=== PATIENT | female | born 1990 | race American Indian/Alaskan Native ===

== ENCOUNTER 2017-05-10 10:43 | Emergency (ER) | payer OTHER ==
[2017-05-10 14:42] LABS: Basophils % (Auto) 0.4 % (0.0-1.8); Eosinophils # (Auto) 0.5 K/mm3 (0.0-0.4); Eosinophils % (Auto) 5.2 % (0.0-4.3); Hemoglobin 12.3 gm/dl (10.1-14.3); Lymphocytes # (Auto) 3.6 K/mm3 (1.2-5.4); Lymphocytes % (Auto) 37.5 % (13.4-35.0); Mean Corpuscular HGB Conc 33 % (30-34); Mean Corpuscular Hemoglobin 28 pg (28-32); Mean Corpuscular Volume 87 fl (79-97); Monocytes # (Auto) 0.9 K/mm3 (0.0-0.8); Monocytes % (Auto) 8.8 % (0.0-7.3); Platelet Count 237 K/mm3 (140-440); Red Blood Count 4.36 M/mm3 (3.65-5.03); Red Cell Distribution Width 15.5 % (13.2-15.2)
[2017-05-10 14:56] LABS: Alanine Aminotransferase 16 units/L (7-56); Albumin 4.1 g/dL (3.9-5); BUN/Creatinine Ratio 13; Blood Urea Nitrogen 8 mg/dL (7-17); Calcium 8.9 mg/dL (8.4-10.2); Hemolysis Index 18
[2017-05-10 17:10] LABS: Bilirubin,Urine NEG (Negative); Blood,Urine NEG (Negative); Color,Urine Yellow (Yellow); Mucus,Urine FEW /HPF; Nitrite,Urine NEG (Negative); Protein,Urine <15 mg/dL mg/dL (Negative); Urobilinogen,Urine < 2.0 mg/dL (<2.0); WBC,Urine < 1.0 /HPF (0.0-6.0)
--- NOTE | 2017-05-10 19:39 | Emergency Department Report ---
ED Female HPI - General Chief complaint: Abdominal Pain Stated complaint: ABDOMINAL PAIN Time Seen by Provider: 05/10/17 18:41 Source: patient (LMP 04/08/17 but her period has not bee regular since November 2016. Apart from the irregular period she has been having intermittent random right lower abdominal pain. No other symptoms. She is sexually active and trying to get . No previous pregnancies.) Mode of arrival: Ambulatory Limitations: No Limitations - Related Data Previous Rx's Medication Instructions Recorded Last Taken Type Ibuprofen [Motrin] 800 mg PO Q8HR PRN #28 tablet 05/10/17 Unknown Rx Allergies Allergy/AdvReac Type Severity Reaction Status Date / Time No Known Allergies Allergy Unverified 05/10/17 12:53 ED Review of Systems ROS: Stated complaint: ABDOMINAL PAIN Other details as noted in HPI Constitutional: denies: chills, fever Eyes: denies: eye pain, eye discharge, vision change ENT: denies: ear pain, throat pain Respiratory: denies: cough, shortness of breath, wheezing Cardiovascular: denies: chest pain, palpitations Endocrine: no symptoms reported Gastrointestinal: denies: abdominal pain, nausea, diarrhea Genitourinary: denies: urgency, dysuria, discharge Musculoskeletal: denies: back pain, joint swelling, arthralgia Skin: denies: rash, lesions Neurological: denies: headache, weakness, paresthesias Psychiatric: denies: anxiety, depression Hematological/Lymphatic: denies: easy bleeding, easy bruising ED Past Medical Hx - Past Medical History Previous Medical History?: No - Surgical History Past Surgical History?: No - Social History Smoking Status: Never Smoker Substance Use Type: None - Medications Home Medications: Home Medications Medication Instructions Recorded Confirmed Last Taken Type Ibuprofen [Motrin] 800 mg PO Q8HR PRN #28 tablet 05/10/17 Unknown Rx ED Physical Exam - General Limitations: No Limitations General appearance: alert, in no apparent distress - Head Head exam: Present: atraumatic, normocephalic - Eye Eye exam: Present: normal appearance - ENT ENT exam: Present: mucous membranes moist - Neck Neck exam: Present: normal inspection - Respiratory Respiratory exam: Present: normal lung sounds bilaterally. Absent: respiratory distress - Cardiovascular Cardiovascular Exam: Present: regular rate, normal rhythm. Absent: systolic murmur, diastolic murmur, rubs, gallop - GI/Abdominal GI/Abdominal exam: Present: soft, normal bowel sounds - Extremities Exam Extremities exam: Present: normal inspection - Back Exam Back exam: Present: normal inspection - Neurological Exam Neurological exam: Present: alert, oriented X3 - Psychiatric Psychiatric exam: Present: normal affect, normal mood - Skin Skin exam: Present: warm, dry, intact, normal color. Absent: rash ED Course Vital Signs 05/10/17 12:53 Temperature 98.2 F Pulse Rate 104 H Respiratory 18 Rate Blood Pressure 133/75 O2 Sat by Pulse 100 Oximetry ED Medical Decision Making - Lab Data Result diagrams: 05/10/17 14:05 05/10/17 14:05 Critical care attestation.: If time is entered above; I have spent that time in minutes in the direct care of this critically ill patient, excluding procedure time. ED Disposition Clinical Impression: Irregular periods/menstrual cycles Abdominal pain Qualifiers: Abdominal location: right lower quadrant Qualified Code(s): R10.31 - Right lower quadrant pain Disposition: - TO HOME OR SELFCARE Is pt being admited?: No Does the pt Need Aspirin: No Condition: Stable Instructions: Abdominal Pain (ED) Prescriptions: Ibuprofen [Motrin] 800 mg PO Q8HR PRN #28 tablet PRN Reason: Pain Referrals: PRIMARY CARE, [Primary Care Provider] - 3-5 Days Time of Disposition: 21:19
--- NOTE | 2017-05-10 20:51 | Ultrasound Report ---
FINAL REPORT PROCEDURE: US PELVIC COMPLETE TECHNIQUE: Real-time transabdominal sonography in multiple planes of pelvis was performed with image documentation. This examination was performed without Doppler. Vascular abnormalities, including ovarian torsion, will not be detectable without Doppler evaluation. CPT 92566 HISTORY: irregular period and RLQ. COMPARISON: Transvaginal pelvic ultrasound also performed today. FINDINGS: The report for this exam was generated using images from both the transabdominal and a transvaginal pelvic ultrasound both of which were performed today. The uterus is anteverted and shows no focal abnormality. Uterus measures 7.4 x 4.8 x 3.8 centimeter. No uterine masses are seen. The endometrial stripe measures 12.2 millimeters and is unremarkable. No abnormal fluid is seen in the endometrial canal. Small amount of nonspecific free fluid is present in the cul-de-sac. Right and left ovaries are unremarkable. No abnormal cystic or solid masses are seen in the adnexa. Small follicles visualized in both ovaries. The right ovary measures 3.5 x 3.4 x 3.3 centimeter. The left ovary 2.8 x 2.1 x 1.8 centimeter. IMPRESSION: Negative exam.
--- NOTE | 2017-05-10 20:51 | Ultrasound Report ---
FINAL REPORT PROCEDURE: US TRANSVAGINAL TECHNIQUE: Real-time transvaginal sonography in multiple planes of the pelvis was performed with image documentation. This examination was performed without Doppler. Vascular abnormalities, including ovarian torsion, will not be detectable without Doppler evaluation. CPT 81160 HISTORY: Irregular period and RLQ pain COMPARISON: Transabdominal pelvic ultrasound also performed today. FINDINGS: The report for this exam was generated using images from both the transabdominal and a transvaginal pelvic ultrasound both of which were performed today. The uterus is anteverted and shows no focal abnormality. Uterus measures 7.4 x 4.8 x 3.8 centimeter. No uterine masses are seen. The endometrial stripe measures 12.2 millimeters and is unremarkable. No abnormal fluid is seen in the endometrial canal. Small amount of nonspecific free fluid is present in the cul-de-sac. Right and left ovaries are unremarkable. No abnormal cystic or solid masses are seen in the adnexa. Small follicles visualized in both ovaries. The right ovary measures 3.5 x 3.4 x 3.3 centimeter. The left ovary 2.8 x 2.1 x 1.8 centimeter. IMPRESSION: Negative exam..
[2017-05-10 21:36] VITALS: BP 131/72
== END 2017-05-10 21:23 | disposition home or self-care (01) ==
LOC: ED 10:43
DX: N92.5 Other specified irregular menstruation (principal); R10.31 Right lower quadrant pain
CPT/HCPCS: 36415; 76830; 76856; 80053; 81001; 84703; 85025